=== PATIENT | female | born 1990 | race Caucasian/White ===

== ENCOUNTER 2017-05-10 23:43 | Emergency (ER) | payer OTHER ==
[2017-05-11 00:58] LABS: PLATELET COUNT 235 x10^3mcL (130-400)
[2017-05-11 01:01] LABS: BASOPHIL % 2.4 % (0-2)
[2017-05-11 02:17] LABS: microscopic required? YES; urine erythrocyte 1+ (NEGATIVE)
[2017-05-11 02:54] VITALS: BP 123/75
== END 2017-05-11 02:54 | disposition home or self-care (01) ==
LOC: ED 23:43
PROVIDERS: Emergency Medicine
DX: O03.9 Complete or unspecified spontaneous abortion without complication (principal); O99.011 Anemia complicating pregnancy, first trimester; Z3A.01 Less than 8 weeks gestation of pregnancy; Z88.0 Allergy status to penicillin
CPT/HCPCS: 36415